=== PATIENT | female | born 1990 | race Caucasian/White ===

== ENCOUNTER → 2018-07-02 | Outpatient (CLI) | payer OTHER ==
[2018-07-02 15:01] LABS: HEMATOCRIT 35.5 % (36.0-47.0); HEMOGLOBIN 11.2 g/dl (12.0-15.5); MEAN CORPUSCULAR HEMOGLOBIN 26.9 pg (27.0-33.0); MEAN CORPUSCULAR HGB CONC 31.5 g/dl (32.0-36.5); MEAN CORPUSCULAR VOLUME 85.1 fl (80.0-96.0); PLATELET COUNT, AUTOMATED 316 10^3/uL (150-450); RED BLOOD COUNT 4.17 10^6/uL (4.00-5.40); WHITE BLOOD COUNT 5.8 10^3/uL (4.0-10.0)
[2018-07-02 16:58] LABS: HCG, SERUM QUANTITATIVE < 1.0 MIU/ML
[2018-07-02 17:06] LABS: LUTEINIZING HORMONE 12.7 mIU/mL; PROGESTERONE 0.33 NG/ML
[2018-07-02 17:07] LABS: FOLLICLE STIMULATING HORMONE 7.7 mIU/mL
[2018-07-02 21:19] LABS: ESTRADIOL 42.2 PG/ML
== END ==
LOC: M LAB 14:04
PROVIDERS: ATTEND Obstetrics & Gynecology Reproductive Endocrinology
DX: Z52.819 Egg (Oocyte) donor, unspecified (principal)

== ENCOUNTER → 2018-07-08 | Outpatient (CLI) | payer OTHER ==
[2018-07-08 12:39] LABS: ESTRADIOL 24.4 PG/ML; FOLLICLE STIMULATING HORMONE 6.1 mIU/mL; LUTEINIZING HORMONE 10.1 mIU/mL; PROGESTERONE 0.35 NG/ML
== END ==
LOC: M LAB 11:30
PROVIDERS: ATTEND Obstetrics & Gynecology Reproductive Endocrinology
DX: Z31.41 Encounter for fertility testing (principal)

== ENCOUNTER → 2018-07-08 | Outpatient (CLI) | payer OTHER ==
--- NOTE | 2018-07-08 15:24 | REP ---
TRANSVAGINAL AND PELVIC ULTRASOUND, FOLLICLE STUDY: Real-time sonographic evaluation of the pelvis performed utilizing transvaginal technique. Uterus measures 7.5 x 4.0 x 5.3 cm. Endometrial thickness is 7 mm. Endometrium has a trilaminar appearance. There is trace free fluid in the cul-de-sac. Right ovary measures 4.5 x 1.8 x 3.9 cm. Two dominant follicles measure 10 x 6 and 12 x 4 mm. Multiple other subcentimeter follicles are seen. Left ovary measures 3.8 x 1.8 x 3.0 cm. Two dominant follicles measure 10 x 9 and 12 x 4 mm. Multiple other subcentimeter follicles are seen. Blood flow is seen in each ovary with duplex Doppler evaluation, with no torsion. Electronically Signed by Johnny Hill MD 07/08/2018 04:32 P
== END ==
LOC: M RAD 11:45
DX: Z31.41 Encounter for fertility testing (principal)

== ENCOUNTER → 2018-07-12 | Outpatient (CLI) | payer OTHER ==
[2018-07-12 13:50] LABS: ESTRADIOL < 19.0 PG/ML; FOLLICLE STIMULATING HORMONE 3.5 mIU/mL; LUTEINIZING HORMONE 3.8 mIU/mL; PROGESTERONE 0.29 NG/ML
--- NOTE | 2018-07-12 14:04 | REP ---
TRANSVAGINAL PELVIC ULTRASOUND FOLLICLE STUDY: Real-time sonographic evaluation of the pelvis performed utilizing transvaginal technique. The uterus measures 7.5 x 4.2 x 4.9 cm. The endometrial thickness is 10 mm. No endometrial fluid collection is seen. The endometrial has a trilaminar appearance. Right ovary measures 3.9 x 2.2 x 1.7 cm. There is a dominant follicle 11 x 6 mm. Multiple other subcentimeter follicles are seen in the right ovary and there is duplex Doppler flow in the right ovary. Left ovary measures 3.2 x 2.6 x 1.7 cm. A dominant follicle measures 11 x 7 mm. Multiple other subcentimeter follicles are seen in the left ovary, which also demonstrates internal blood flow. Electronically Signed by Johnny Hill MD 07/13/2018 02:52 P
== END ==
LOC: M RAD 12:01
PROVIDERS: ATTEND Obstetrics & Gynecology Reproductive Endocrinology
DX: Z52.819 Egg (Oocyte) donor, unspecified (principal)